=== PATIENT | male | born 1980 | race Caucasian/White ===

== ENCOUNTER 2017-02-07 19:51 | Emergency (ER) | payer OTHER ==
[2017-02-07 19:57] VITALS: BP 123/72; PULSE 64; TEMP 97.9; BMI 26.6
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
[2017-02-07 20:48] LABS: BASOPHIL 0.6 % (0-2.0); EOSINOPHIL 4.3 % (0-4.5); MCH 30.3 pg (25.7-33.7); MEAN CELL VOLUME 89.1 fl (80-96); NEUTROPHILS 50.9 % (42.8-82.8); PLATELET COUNT 291 K/MM3 (134-434); RDW 12.4 % (11.9-15.9); WHITE BLOOD COUNT 10.1 K/mm3 (4.0-10.0)
[2017-02-07 21:15] LABS: ALBUMIN 4.7 g/dl (3.4-5.0); ANION GAP 6 (8-16); BILIRUBIN,TOTAL 0.5 mg/dL (0.2-1.0); CALCIUM 9.1 mg/dL (8.5-10.1); CHOLESTEROL 183 mg/dL (50-200); CO2 28 mmol/L (21-32); COCKROFT - GAULT 113.55; GLUCOSE,RANDOM 94 mg/dL (74-106); LDH 143 U/L (87-241); PHOSPHOROUS 3.5 mg/dL (2.5-4.9); SGOT/AST 31 U/L (15-37); SGPT/ALT 49 U/L (12-78); TOT PROT 7.8 g/dl (6.4-8.2); URIC ACID 5.2 mg/dL (2.6-7.2)
[2017-02-07 21:16] LABS: ALK PHOS 64 U/L (45-117)
[2017-02-07 21:31] LABS: HIV 1 & 2 AB NEGATIVE; HIV 1 AGp24 NEGATIVE
[2017-02-09 06:26] LABS: HEP B SURFACE AB Reactive (.)
== END 2017-02-07 21:48 | disposition home or self-care (01) ==
LOC: JERFT 19:51
DX: Z77.21 Contact with and (suspected) exposure to potentially hazardous body fluids (principal); Y35.811A Legal intervention involving manhandling, law enforcement official injured, initial encounter; Y93.89 Activity, other specified; Y92.89 Other specified places as the place of occurrence of the external cause; Y99.0 Civilian activity done for income or pay
CPT/HCPCS: 36415; 80053; 82465; 82977; 83615; 84100; 84478; 84550; 85025; 86704; 86706; 87340; 87389; 99281-25

== ENCOUNTER 2017-12-29 13:11 | Emergency (ER) | payer OTHER ==
[2017-12-29] MEDS ORDERED: IBUPROFEN 600 MG TABLET (FP) PO ONE ×2 (13:42→14:09)
[2017-12-29 14:03] VITALS: BP 160/104; PULSE 82; TEMP 98; BMI 30.4
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
== END 2017-12-29 16:25 | disposition home or self-care (01) ==
LOC: JER 13:11 → JERFT 13:11
DX: S80.01XA Contusion of right knee, initial encounter (principal); Y35.891A Legal intervention involving other specified means, law enforcement official injured, initial encounter; V43.52XA Car driver injured in collision with other type car in traffic accident, initial encounter; Y93.89 Activity, other specified; Y92.488 Other paved roadways as the place of occurrence of the external cause; Y99.0 Civilian activity done for income or pay; S16.1XXA Strain of muscle, fascia and tendon at neck level, initial encounter
CPT/HCPCS: 73562-TC-RT-FY; 73610-TC-RT-FY; 99281-25